=== PATIENT | male | born 1980 | race Caucasian/White ===

== ENCOUNTER 2020-05-14 03:08 | Emergency (ER) | payer OTHER ==
[~2020-05-14] VITALS: Ht 170.2 cm; Wt 69.0 kg
[2020-05-14 03:37] VITALS: BP 117/78
[2020-05-14 04:22] LABS: HEPATITIS B SURFACE ANTIGEN NEGATIVE
[2020-05-14 04:52] LABS: HEPATITIS A AB IGM NEGATIVE (NEGATIVE)
[2020-05-15 05:08] LABS: HIV SCREEN 4G Non Reactive (Non Reactive)
== END 2020-05-14 03:42 | disposition home or self-care (01) ==
LOC: ER 03:08
DX: Z77.21 Contact with and (suspected) exposure to potentially hazardous body fluids (principal)
CPT/HCPCS: 36415; 86705; 86709; 86803; 87340; 87389; 99283